=== PATIENT | male | born 1930 | race Caucasian/White ===

== ENCOUNTER 2017-01-13 10:38 | Emergency (ER) | payer MEDICARE, BC ==
[~2017-01-13] VITALS: Ht 170.2 cm; Wt 77.3 kg
[2017-01-13 10:41] VITALS: TEMP 97.8
[2017-01-13 11:30] LABS: BASO % 0.2 % (0.0-2.0); GRAN % 87.1 % (42.2-75.2); HEMATOCRIT 46.9 % (42.0-52.0); HEMOGLOBIN 15.5 g/dl (13.5-18.0); LYMPH # 0.8 (1.2-3.4); LYMPH % 5.1 % (20.0-51.0); MEAN CELL VOLUME 96 fl (80.0-100.0); MEAN CORPUSCULAR HEMOGLOBIN 32 pg (27.0-31.0); MEAN CORPUSCULAR HGB CONC 33 g/dl (33.0-37.0); MEAN PLATELET VOLUME 11.1 fl (7.4-10.4); MONO # 1.1 (0.1-0.6); MONO % 7.1 % (1.7-9.3); PLATELET COUNT 155 K/mm3 (130-400); REDCELL DISTRIBUTION WIDTH-CV 13.6 % (11.5-14.5)
[2017-01-13 11:45] LABS: ADJUSTED CALCIUM 8.6 mg/dL (8.4-10.2); ALBUMIN 4.5 gm/dL (3.5-5.0); BILIRUBIN,TOTAL 5.4 mg/dL (0.0-1.0); CREATININE, serum 0.9 mg/dL (0.66-1.25); POTASSIUM 4.4 mmol/L (3.4-5.0)
[2017-01-13 13:06] LABS: PH 5 (5-8); SQUAMOUS EPITHELIAL None Seen /hpf; URINE APPEARANCE Clear; URINE BACTERIA None Seen /hpf; URINE BILIRUBIN Negative (NEGATIVE); URINE BLOOD 2+ (NEGATIVE); URINE COLOR Yellow; URINE GLUCOSE Negative (NEGATIVE); URINE KETONE 1+ (NEGATIVE); URINE RBC 0-2 /hpf; URINE UROBILINOGEN Negative (NEGATIVE); URINE WBC 0-2 /hpf
[2017-01-13] MEDS ORDERED: DOXYCYCLINE 10100 MG PO (13:13)
[2017-01-13 13:53] VITALS: BP 127/78; PULSE 87
== END 2017-01-13 13:54 | disposition home or self-care (01) ==
LOC: COL.ER 10:38
PROVIDERS: Emergency Medicine
DX: S00.81XA Abrasion of other part of head, initial encounter (principal); J40 Bronchitis, not specified as acute or chronic; R53.1 Weakness; W19.XXXA Unspecified fall, initial encounter; Z91.81 History of falling; Y92.009 Unspecified place in unspecified non-institutional (private) residence as the place of occurrence of the external cause; S09.90XA Unspecified injury of head, initial encounter; F17.210 Nicotine dependence, cigarettes, uncomplicated
CPT/HCPCS: J7030

== ENCOUNTER 2017-11-19 19:29 | Emergency (ER) | payer MEDICARE, BC ==
[~2017-11-19] VITALS: Ht 170.2 cm; Wt 77.3 kg
[~2017-11-19 19:29] MED LIST: DOXYCYCLINE 10100 MG PO
[2017-11-19 19:38] VITALS: TEMP 100.7
[2017-11-19 19:45] LABS: BASO % 0.3 % (0.0-2.0); GRAN # 8.7 (1.4-6.5); GRAN % 84.6 % (42.2-75.2); HEMATOCRIT 49.3 % (42.0-52.0); HEMOGLOBIN 16.5 g/dl (13.5-18.0); LYMPH # 0.6 (1.2-3.4); LYMPH % 5.6 % (20.0-51.0); MEAN CELL VOLUME 94 fl (80.0-100.0); MEAN CORPUSCULAR HEMOGLOBIN 32 pg (27.0-31.0); MEAN CORPUSCULAR HGB CONC 34 g/dl (33.0-37.0); MEAN PLATELET VOLUME 10.8 fl (7.4-10.4); MONO # 0.9 (0.1-0.6); MONO % 9.2 % (1.7-9.3); PLATELET COUNT 140 K/mm3 (130-400); RED BLOOD COUNT 5.22 M/mm3 (4.20-5.60); REDCELL DISTRIBUTION WIDTH-CV 13.8 % (11.5-14.5)
[2017-11-19 19:48] LABS: INR 1.2 (0.8-3.0); PROTHROMBIN TIME 14.2 SECONDS (9.7-12.8)
[2017-11-19 20:00] LABS: ALBUMIN 4.5 gm/dL (3.5-5.0); BILIRUBIN,TOTAL 3.5 mg/dL (0.0-1.0); CALCIUM 8.9 mg/dL (8.4-10.2); CREATININE, serum 0.99 mg/dL (0.66-1.25); POTASSIUM 4.2 mmol/L (3.4-5.0)
[2017-11-19 20:18] LABS: TROPONIN-I 0.036 ng/mL (0.000-0.034)
[2017-11-19 21:15] LABS: COLLECTION METHOD CLEAN CATCH
[2017-11-19 21:31] LABS: MUCOUS Present /lpf; PH 5 (5-8); SQUAMOUS EPITHELIAL 0-2 /hpf; URINE APPEARANCE Hazy; URINE BACTERIA None Seen /hpf; URINE BILIRUBIN Negative (NEGATIVE); URINE BLOOD 2+ (NEGATIVE); URINE COLOR Yellow; URINE GLUCOSE Negative (NEGATIVE); URINE KETONE Trace (NEGATIVE); URINE LEUKOCYTE ESTERASE Negative (NEGATIVE); URINE NITRATE Negative (NEGATIVE); URINE PROTEIN(semi-quant) 1+ (NEGATIVE); URINE UROBILINOGEN Negative (NEGATIVE)
[2017-11-19 22:30] VITALS: BP 163/91; PULSE 88
== END 2017-11-19 22:40 | disposition short-term general hospital (02) ==
LOC: COL.ER 19:29
PROVIDERS: Emergency Medicine
DX: S00.83XA Contusion of other part of head, initial encounter (principal); S80.02XA Contusion of left knee, initial encounter; S80.01XA Contusion of right knee, initial encounter; M62.82 Rhabdomyolysis; R55 Syncope and collapse; R79.89 Other specified abnormal findings of blood chemistry; I48.91 Unspecified atrial fibrillation; W19.XXXA Unspecified fall, initial encounter; Y92.009 Unspecified place in unspecified non-institutional (private) residence as the place of occurrence of the external cause
CPT/HCPCS: J7030

== ENCOUNTER 2017-11-23 18:07 | Emergency (ER) | payer MEDICARE, BC ==
[~2017-11-23] VITALS: Ht 167.6 cm; Wt 81.8 kg
[2017-11-23 19:44] LABS: BASO % 0.4 % (0.0-2.0); EOS % 0.3 % (0-4.0); GRAN # 5.6 (1.4-6.5); GRAN % 78.4 % (42.2-75.2); HEMATOCRIT 45.9 % (42.0-52.0); HEMOGLOBIN 15.5 g/dl (13.5-18.0); LYMPH # 0.7 (1.2-3.4); LYMPH % 10.1 % (20.0-51.0); MEAN CELL VOLUME 93 fl (80.0-100.0); MEAN CORPUSCULAR HEMOGLOBIN 32 pg (27.0-31.0); MEAN CORPUSCULAR HGB CONC 34 g/dl (33.0-37.0); MEAN PLATELET VOLUME 11.2 fl (7.4-10.4); MONO # 0.7 (0.1-0.6); MONO % 10.1 % (1.7-9.3); PLATELET COUNT 178 K/mm3 (130-400); RED BLOOD COUNT 4.92 M/mm3 (4.20-5.60); REDCELL DISTRIBUTION WIDTH-CV 13.7 % (11.5-14.5)
[2017-11-23 19:46] LABS: COLLECTION METHOD CLEAN CATCH
[2017-11-23 19:49] LABS: ALBUMIN 3.3 gm/dL (3.5-5.0); BILIRUBIN,TOTAL 1.9 mg/dL (0.0-1.0); CALCIUM 8.1 mg/dL (8.4-10.2); CREATININE, serum 0.93 mg/dL (0.66-1.25); POTASSIUM 3.5 mmol/L (3.4-5.0); TOTAL PROTEIN 6.7 gm/dL (6.4-8.2)
[2017-11-23 19:51] LABS: PH 5 (5-8); SQUAMOUS EPITHELIAL None Seen /hpf; URINE APPEARANCE Clear; URINE BACTERIA None Seen /hpf; URINE BILIRUBIN Negative (NEGATIVE); URINE BLOOD Negative (NEGATIVE); URINE COLOR Yellow; URINE GLUCOSE Negative (NEGATIVE); URINE KETONE Negative (NEGATIVE); URINE LEUKOCYTE ESTERASE Negative (NEGATIVE); URINE NITRATE Negative (NEGATIVE); URINE PROTEIN(semi-quant) Negative (NEGATIVE); URINE RBC 0-2 /hpf; URINE UROBILINOGEN >=4.0 mg/dL (NEGATIVE)
[2017-11-23 23:18] VITALS: BP 176/94; PULSE 91; TEMP 99.1
== END 2017-11-23 23:21 | disposition home or self-care (01) ==
LOC: COL.ER 18:07
PROVIDERS: Family Medicine
DX: K40.90 Unilateral inguinal hernia, without obstruction or gangrene, not specified as recurrent (principal); I48.91 Unspecified atrial fibrillation; F03.90 Unspecified dementia, unspecified severity, without behavioral disturbance, psychotic disturbance, mood disturbance, and anxiety
CPT/HCPCS: J7030; Q9967

== ENCOUNTER 2017-11-26 10:17 | Emergency (ER) | payer MEDICARE, BC ==
[~2017-11-26] VITALS: Ht 167.6 cm; Wt 81.8 kg
[2017-11-26 10:20] VITALS: BP 146/72; PULSE 83; TEMP 97.7
== END 2017-11-26 11:10 | disposition home or self-care (01) ==
LOC: COL.ER 10:17
DX: K40.90 Unilateral inguinal hernia, without obstruction or gangrene, not specified as recurrent (principal); I48.91 Unspecified atrial fibrillation; F03.90 Unspecified dementia, unspecified severity, without behavioral disturbance, psychotic disturbance, mood disturbance, and anxiety

== ENCOUNTER → 2017-12-01 | Outpatient (CLI) | payer MEDICARE, BC | LOC: COL.RAD 08:53 | DX: Z01.810 Encounter for preprocedural cardiovascular examination (principal) ==

== ENCOUNTER 2017-12-03 10:30 | Day surgery (SDC) | payer MEDICARE, BC ==
[2017-12-02 14:14] LABS: MEAN CELL VOLUME 95 fl (80.0-100.0); MEAN CORPUSCULAR HEMOGLOBIN 31 pg (27.0-31.0); MEAN CORPUSCULAR HGB CONC 33 g/dl (33.0-37.0); MEAN PLATELET VOLUME 9.8 fl (7.4-10.4); PLATELET COUNT 296 K/mm3 (130-400); RED BLOOD COUNT 4.21 M/mm3 (4.20-5.60); REDCELL DISTRIBUTION WIDTH-CV 14.8 % (11.5-14.5)
[2017-12-02 14:19] LABS: CALCIUM 8.2 mg/dL (8.4-10.2); CREATININE, serum 0.83 mg/dL (0.66-1.25); POTASSIUM 3.6 mmol/L (3.4-5.0)
[~2017-12-03] VITALS: Ht 167.6 cm; Wt 80.3 kg
[2017-12-03] MEDS ORDERED: TYLENOL 325MG325 MG PO (11:31)
[2017-12-03] MEDS ORDERED: ASPIRIN E.C. 8181 MG PO (11:32)
[2017-12-03] MEDS ORDERED: TOPROL XL 25MG25 MG PO (11:33)
[2017-12-03] MEDS ORDERED: ZYPREXA 5MG5 MG PO (11:34)
[2017-12-03] MEDS ORDERED: NORCO 325 MG-51 TAB PO ×3 (11:36→14:46)
[2017-12-03 11:37] VITALS: BP 166/73; PULSE 90; TEMP 98.2
[2017-12-03] MEDS ORDERED: CIPRO 500MG TA500 MG PO (14:44)
[2017-12-03] MEDS ORDERED: FLAGYL500 MG PO (14:45)
[2017-12-03] MEDS ORDERED: COLACE 100100 MG/CAP PO (14:45)
[2017-12-03 15:15] VITALS: BP 115/58; PULSE 68
[2017-12-03 15:30] VITALS: BP 141/68; PULSE 84
[2017-12-03 22:09] VITALS: BP 101/72; PULSE 84; TEMP 98.4
[2017-12-04 02:26] VITALS: BP 110/76; PULSE 85; TEMP 98.1
[2017-12-04 06:05] VITALS: BP 116/74; PULSE 86; TEMP 98.7
[2017-12-04 10:10] VITALS: BP 118/84; PULSE 95; TEMP 98
[2017-12-04 11:40] VITALS: BP 118/84; PULSE 95; TEMP 98
== END 2017-12-04 13:32 ==
LOC: SDCO 10:30 → SURG 15:05 → SDCO 12-04 13:32
PROVIDERS: Surgery
DX: K40.90 Unilateral inguinal hernia, without obstruction or gangrene, not specified as recurrent (principal); K38.8 Other specified diseases of appendix; Z79.82 Long term (current) use of aspirin; I48.2 Chronic atrial fibrillation; Z85.828 Personal history of other malignant neoplasm of skin; M62.82 Rhabdomyolysis; D69.6 Thrombocytopenia, unspecified; F01.50 Vascular dementia, unspecified severity, without behavioral disturbance, psychotic disturbance, mood disturbance, and anxiety; F17.220 Nicotine dependence, chewing tobacco, uncomplicated; Z88.0 Allergy status to penicillin; I50.22 Chronic systolic (congestive) heart failure; Z66 Do not resuscitate; Z91.81 History of falling
CPT/HCPCS: OP; C1781; J0690; J0694; J1630; J1885; J2250; J2405; J2704; J3010; J7120

== ENCOUNTER → 2017-12-10 | Outpatient (CLI) | payer MEDICARE, BC ==
[~2017-12-10] MED LIST changes: +ASPIRIN E.C. 8181 MG PO; +CIPRO 500MG TA500 MG PO; +COLACE 100100 MG/CAP PO; +FLAGYL500 MG PO; +NORCO 325 MG-51 TAB PO; +TOPROL XL 25MG25 MG PO; +TYLENOL 325MG325 MG PO; +ZYPREXA 5MG5 MG PO
== END ==
LOC: COL.RAD 11:44
DX: J98.11 Atelectasis (principal)

== ENCOUNTER → 2017-12-16 | Emergency (ER) | payer MEDICARE, BC ==
[~2017-12-16] VITALS: Ht 172.7 cm; Wt 77.2 kg
[2017-12-16 12:16] VITALS: TEMP 97.6
[2017-12-16 12:49] LABS: BASO # 0.1 (0.0-0.2); BASO % 0.4 % (0.0-2.0); GRAN # 7.7 (1.4-6.5); GRAN % 69.2 % (42.2-75.2); HEMATOCRIT 38.6 % (42.0-52.0); HEMOGLOBIN 12.6 g/dl (13.5-18.0); LYMPH # 2.5 (1.2-3.4); LYMPH % 22.6 % (20.0-51.0); MEAN CELL VOLUME 95 fl (80.0-100.0); MEAN CORPUSCULAR HEMOGLOBIN 31 pg (27.0-31.0); MEAN CORPUSCULAR HGB CONC 33 g/dl (33.0-37.0); MEAN PLATELET VOLUME 9.3 fl (7.4-10.4); MONO # 0.8 (0.1-0.6); PLATELET COUNT 377 K/mm3 (130-400); RED BLOOD COUNT 4.07 M/mm3 (4.20-5.60); REDCELL DISTRIBUTION WIDTH-CV 15.6 % (11.5-14.5)
[2017-12-16 13:01] LABS: BILIRUBIN,TOTAL 1.1 mg/dL (0.0-1.0); CALCIUM 8.2 mg/dL (8.4-10.2); CREATININE, serum 0.88 mg/dL (0.66-1.25); POTASSIUM 3.7 mmol/L (3.4-5.0); TOTAL PROTEIN 6.8 gm/dL (6.4-8.2)
[2017-12-16 14:38] VITALS: BP 140/73; PULSE 95
== END ==
LOC: COL.ER 12:09
PROVIDERS: Emergency Medicine
DX: J06.9 Acute upper respiratory infection, unspecified (principal); I48.91 Unspecified atrial fibrillation; Z98.890 Other specified postprocedural states; Z79.82 Long term (current) use of aspirin